=== PATIENT | female | born 1960 | race Caucasian/White ===

== ENCOUNTER 2018-03-15 12:14 | Emergency (ER) | payer SELFPAY ==
[~2018-03-15] VITALS: Ht 157.5 cm; Wt 77.3 kg
[~2018-03-15 12:14] MED LIST: ASPIRIN 32325 MG/TAB PO; CYANOCOBAL1000 MCG/1 IM; MOBIC 7.5MG7.5 MG PO; MOBIC PO; MUCINEX 60600 MG/TA1 PO; MUCINEX 60600 MG/TAB PO; PROPRANOLOL PO; VITAMIN D3 PO; ZOLOFT PO
[2018-03-15 12:16] VITALS: TEMP 98.7
[2018-03-15 12:44] LABS: BASO % 0.5 % (0.0-2.0); EOS # 0.1 (0.0-0.7); EOS % 0.7 % (0-4.0); GRAN # 5.3 (1.4-6.5); GRAN % 65.2 % (42.2-75.2); HEMATOCRIT 41.5 % (37.0-47.0); HEMOGLOBIN 14.1 g/dl (12.5-16.0); LYMPH # 2.3 (1.2-3.4); LYMPH % 28.2 % (20.0-51.0); MEAN CELL VOLUME 82 fl (80.0-100.0); MEAN CORPUSCULAR HEMOGLOBIN 28 pg (27.0-31.0); MEAN CORPUSCULAR HGB CONC 34 g/dl (33.0-37.0); MEAN PLATELET VOLUME 9.4 fl (7.4-10.4); MONO # 0.4 (0.1-0.6); MONO % 5.3 % (1.7-9.3); PLATELET COUNT 255 K/mm3 (130-400); RED BLOOD COUNT 5.08 M/mm3 (4.10-5.30); REDCELL DISTRIBUTION WIDTH-CV 12.6 % (11.5-14.5)
[2018-03-15 12:59] LABS: ALANINE AMINOTRANSFERASE 31 U/L (9-52); ALKALINE PHOSPHATASE 80 U/L (50-136); ANION GAP 13 mmol/L (7-16); AST,SGOT 34 U/L (15-37); BILIRUBIN,TOTAL 0.5 mg/dL (0.0-1.0); BLOOD UREA NITROGEN 19 mg/dL (7-17); C-REACTIVE PROTEIN < 0.5 mg/dL (0.0-0.9); CALCIUM 9.4 mg/dL (8.4-10.2); CARBON DIOXIDE 26 mmol/L (22-30); CHLORIDE 104 mmol/L (98-107); CREATININE, serum 0.88 mg/dL (0.52-1.25); GLUCOSE 90 mg/dL (74-106); POTASSIUM 4.4 mmol/L (3.4-5.0); SODIUM 143 mmol/L (137-145); TOTAL PROTEIN 7.5 gm/dL (6.4-8.2)
[2018-03-15] MEDS ORDERED: ULTRAM 50MG TAB50 MG PO (13:03)
[2018-03-15] MEDS ORDERED: TYLENOL 325MG325 MG PO (13:03)
[2018-03-15] MEDS ORDERED: XANAX 0.5MG0.5 MG PO (13:04)
[2018-03-15] MEDS ORDERED: ZOLOFT 100MG100 MG PO (13:04)
[2018-03-15 13:19] LABS: TROPONIN-I < 0.012 ng/mL (0.000-0.034)
[2018-03-15 13:47] LABS: COLLECTION METHOD CLEAN CATCH
[2018-03-15 13:54] LABS: PH 7 (5-8); SQUAMOUS EPITHELIAL 0-2 /hpf; URINE APPEARANCE Clear; URINE BACTERIA None Seen /hpf; URINE BILIRUBIN Negative (NEGATIVE); URINE BLOOD Negative (NEGATIVE); URINE COLOR Straw; URINE GLUCOSE Negative (NEGATIVE); URINE KETONE Negative (NEGATIVE); URINE LEUKOCYTE ESTERASE Negative (NEGATIVE); URINE NITRATE Negative (NEGATIVE); URINE PROTEIN(semi-quant) Negative (NEGATIVE); URINE RBC 0-2 /hpf; URINE UROBILINOGEN Negative (NEGATIVE)
[2018-03-15 15:04] VITALS: BP 119/70; PULSE 68
== END 2018-03-15 15:04 | disposition home or self-care (01) ==
LOC: COL.ER 12:14
PROVIDERS: Emergency Medicine
DX: R07.89 Other chest pain (principal); R11.0 Nausea; Z90.49 Acquired absence of other specified parts of digestive tract; Z90.710 Acquired absence of both cervix and uterus
CPT/HCPCS: J2405; J7030

== ENCOUNTER → 2018-07-21 | Outpatient (CLI) | payer BC ==
[~2018-07-21] MED LIST changes: +TYLENOL 325MG325 MG PO; +ULTRAM 50MG TAB50 MG PO; +XANAX 0.5MG0.5 MG PO; +ZOLOFT 100MG100 MG PO
== END ==
LOC: COL.RAD 14:57
DX: N30.21 Other chronic cystitis with hematuria (principal)

== ENCOUNTER → 2019-01-02 | Outpatient (CLI) | payer BC | LOC: MC.RAD 13:42 | DX: Z12.31 Encounter for screening mammogram for malignant neoplasm of breast (principal) ==

== ENCOUNTER → 2021-11-09 | Outpatient (CLI) | payer BC | LOC: MC.RAD 13:26 | DX: Z12.31 Encounter for screening mammogram for malignant neoplasm of breast (principal) ==

== ENCOUNTER 2022-05-22 00:03 | Emergency (ER) | payer BC ==
[~2022-05-22] VITALS: Ht 157.5 cm; Wt 76.8 kg
[2022-05-22] MEDS ORDERED: NORCO 325 MG-51 TAB PO (02:02)
[2022-05-22 02:16] VITALS: BP 115/70; PULSE 76; TEMP 98.3
== END 2022-05-22 02:16 | disposition home or self-care (01) ==
LOC: COL.ER 00:03
DX: M25.561 Pain in right knee (principal); Z28.310 Unvaccinated for COVID-19; W18.40XA Slipping, tripping and stumbling without falling, unspecified, initial encounter; X50.1XXA Overexertion from prolonged static or awkward postures, initial encounter
CPT/HCPCS: L1846

== ENCOUNTER 2024-08-02 11:14 | Emergency (ER) | payer SELFPAY ==
[~2024-08-02] VITALS: Ht 157.5 cm; Wt 79.5 kg
[~2024-08-02 11:14] MED LIST changes: +NORCO 325 MG-51 TAB PO
[2024-08-02 11:25] VITALS: BP 136/58; TEMP 97.1
[2024-08-02 12:49] LABS: COLLECTION METHOD CLEAN CATCH
[2024-08-02 12:56] LABS: URINE APPEARANCE CLOUDY (CLEAR/HAZY); URINE BLOOD TRACE (NEGATIVE); URINE COLOR YELLOW (YELLOW); URINE GLUCOSE NEGATIVE (NEGATIVE); URINE KETONE NEGATIVE (NEGATIVE); URINE NITRATE POSITIVE (NEGATIVE); URINE PROTEIN(semi-quant) NEGATIVE (NEGATIVE); URINE UROBILINOGEN 0.2 E.U/dL (0.2-1.0)
[2024-08-02] MEDS ORDERED: BACTRIM DS 8001 TAB PO (13:13)
[2024-08-02 13:24] VITALS: PULSE 72
== END 2024-08-02 13:20 | disposition home or self-care (01) ==
LOC: COL.ER 11:14
PROVIDERS: Family Medicine
DX: N39.0 Urinary tract infection, site not specified (principal)